=== PATIENT | female | born 2000 | race African-American/Black ===

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

== ENCOUNTER 2021-04-09 06:56 | Emergency (ER) | payer SELFPAY ==
[2021-04-09] MEDS ORDERED: Sodium Chloride 0.9% 10 ML Syringe FLUSH PRN (07:22)
[2021-04-09] MEDS ORDERED: Dexamethasone 4 MG/ML SDV IVPUSH ONE (07:22)
[2021-04-09] MEDS ORDERED: Sodium Chloride 0.9% 1,000 ML IV ONE (07:22)
--- NOTE | 2021-04-09 07:53 | EDM.PDOC ---
ED HPI GENERAL MEDICAL PROBLEM - General Chief Complaint: ENT Problem Stated Complaint: sore throat, cough, can't swallow, not eating or drinking Time Seen by Provider: 04/09/21 07:00 Source of Information: Reports: Patient History Limitations: Reports: No Limitations - History of Present Illness INITIAL COMMENTS - FREE TEXT/NARRATIVE: Patient presents to the ED with a three day history of sore throat, muffled voice, difficulty swallow, decreased oral intake, cough, ear pain, headache. She states it has been going on for the last 3 days but had a similar illness 2 weeks ago, went to the clinic, was tested for covid and strep, was told it was negative and not given medication. She has taken motrin for it. Today she came to the ED instead of the clinic with concerns of swallowing and not urinating for the last 12 hours. She is not vaccinated against covid or influenza. She has been around her family that has been ill with similar symptoms but unsure if they have been tested or treated for anything. Patient would like an oral pill and limited testing. Has not urinated in over 12 hours, barely able to swallow liquids. Some loose stools, no black or bloody stools Onset Date: 04/06/21 Duration: Getting Worse Associated Symptoms: Reports: Cough, Headaches, Loss of Appetite, Malaise, We akness Treatments PRESCHOOL ASSISTANT DIRECTOR: Reports: NSAIDS Throat Pain Score (Numeric/FACES): 8 - Related Data Allergies Allergy/AdvReac Type Severity Reaction Status Date / Time No Known Allergies Allergy Verified 04/09/21 07:12 Home Meds: Home Meds . [No Known Home Meds] 03/11/18 [History] Past Medical History Psychiatric History: Reports: Anxiety, Depression - History Comment History Comment: substance abuse Social & Family History - Tobacco Use Tobacco Use Status *Q: Current Every Day Tobacco User Years of Tobacco use: 1 Packs/Tins Daily: 0.3 - Recreational Drug Use Recreational Drug Use: No - Sexual History Sexual History: Reports: Vaginal [place] Contraceptive Use: Reports: Rarely/Does Not Use ED ROS GENERAL - Review of Systems Review Of Systems: See Below Constitutional: Reports: Malaise, Weakness, Fatigue, Decreased Appetite. Denies: Fever, Chills HEENT: Reports: Ear Pain, Throat Pain, Throat Swelling. Denies: Eye Discharge, Eye Pain, Nose Pain, Rhinitis, Sinus Problem Respiratory: Reports: Cough. Denies: Sputum, Hemoptysis Cardiovascular: Denies: Chest Pain, Dyspnea on Exertion, Edema, Lightheadedness, Palpitations GI/Abdominal: Reports: Diarrhea, Difficulty Swallowing. Denies: Abdominal Pain : Reports: Other (decreased urination) Musculoskeletal: Reports: Muscle Pain Skin: Reports: No Symptoms Neurological: Reports: No Symptoms Psychiatric: Reports: Anxiety Hematologic/Lymphatic: Reports: No Symptoms ED EXAM, GENERAL - Physical Exam Exam: See Below Exam Limited By: No Limitations General Appearance: Alert, No Apparent Distress Eye Exam: Bilateral Eye: EOMI, Normal Inspection, PERRL Ears: Normal External Exam, Normal Canal, Hearing Grossly Normal, Normal TMs Nose: Normal Inspection Throat/Mouth: Other (4+ tonsils, kissing, no exudate noted. uvula midline, dry mucous membranes. muffled voice) Head: Atraumatic Neck: Lymphadenopathy (L), Lymphadenopathy (R) Respiratory/Chest: Lungs Clear, Normal Breath Sounds, No Accessory Muscle Use, Chest Non-Tender Cardiovascular: Regular Rate, Rhythm, No Edema, No Murmur, No Rub GI/Abdominal: Normal Bowel Sounds, Soft, Non-Tender, No Abnormal Bruit. No: Rigid, Rebound Extremities: Normal Inspection, Normal Range of Motion, Non-Tender, No Pedal Edema Neurological: Alert, Oriented, CN II-XII Intact, Normal Cognition, No Motor/Sensory Deficits, Other (displays capacity to make decisions, able to ambulate and speak) Psychiatric: Anxious, Other (fearful of any medical intervntions offered) Course - Vital Signs Last Recorded V/S: Last Vital Signs Temp 36.5 C 04/09/21 07:02 Pulse 58 L 04/09/21 07:02 Resp 16 04/09/21 07:02 BP 135/80 04/09/21 07:02 Pulse Ox 100 04/09/21 07:02 - Orders/Labs/Meds Orders: Active Orders 24 hr Category Date Time Status C-REACTIVE PROTEIN [CHEM] Stat Lab 04/09/21 07:22 Ordered CBC WITH AUTO DIFF [HEME] Stat Lab 04/09/21 07:22 Ordered COMPREHENSIVE METABOLIC PN,CMP [CHEM] Stat Lab 04/09/21 07:22 Ordered COVID-19/FLU A+B/RSV [MOLEC] Stat Lab 04/09/21 07:22 Ordered LACTIC ACID [CHEM] Stat Lab 04/09/21 07:22 Ordered MONONUCLEOSIS SCREEN [CHEM] Stat Lab 04/09/21 07:22 Ordered STREP A BY PCR [MOLEC] Stat Lab 04/09/21 07:22 Ordered Sodium Chloride 0.9% @ Wide Open(1,000ml) Med 04/09/21 07:22 Ordered Sodium Chloride 0.9% [Normal Saline] 1,000 ml IV ONETIME Sodium Chloride 0.9% [Saline Flush] Med 04/09/21 07:22 Ordered 10 ml FLUSH ASDIRECTED PRN Peripheral IV Insertion Adult [OM.PC] Routine Oth 04/09/21 07:22 Ordered Medication Orders Sodium Chloride (Normal Saline) 1,000 mls @ 999 mls/hr IV ONETIME ONE Stop: 04/09/21 08:22 Sodium Chloride (Sodium Chloride 0.9% 10 Ml Syringe) 10 ml FLUSH ASDIRECTED PRN PRN Reason: Keep Vein Open Meds: Medications Generic Name Dose Route Start Last Admin Trade Name Freq PRN Reason Stop Dose Admin Sodium Chloride 1,000 mls @ 999 mls/hr 04/09/21 07:22 Normal Saline IV 04/09/21 08:22 ONETIME ONE Sodium Chloride 10 ml 04/09/21 07:22 Sodium Chloride 0.9% 10 Ml Syringe FLUSH ASDIRECTED PRN Keep Vein Open Discontinued Medications Generic Name Dose Route Start Last Admin Trade Name Freq PRN Reason Stop Dose Admin Dexamethasone 8 mg 04/09/21 07:22 Dexamethasone 4 Mg/Ml Sdv IVPUSH 04/09/21 07:23 ONETIME ONE - Re-Assessments/Exams Free Text/Narrative Re-Assessment/Exam: discussion with patient that the differential diagnosis is broad and concerning that she was ill with similiar illness in the last month and has limited oral intabke and signs of dehydration. Offered strep, mono, covid/flu testing with IV fluids, decadron and check labs with concern for differential of : strep, mono, covid, flu, paratonsillar abscess. Spent 15 minutes discussing testing needs and reasons, concern for her health, possible need for intervention or isolation and need for thorough evaluation. Patient asks for no testing, feels " I don't have covid or strep" and just wants some penicillin. ADvised that I would not prescribe treatment given her physical exam and lack of urine output without testing, especially in light of the upswing of COVID and influenza in the community. Nursing went into the room to start interventions. patient had very limited veins in the hands or forearms due to scarring. Refused antecubital iv start. At 735 decided to leave AMA. I did step in to the room and discussed the possibility of her being infectious and needing to quarantine and being a public health risk. I discussed with her the possibility of a paratonsillar or similar abscess that could lead to airway obstruction, severe illness and . She acknowledged this and signed the AMA form. Departure - Departure Time of Disposition: 07:38 Disposition: Against Medical Advice 07 Condition: Undetermined Clinical Impression: Sore throat - Discharge Information Additional Instructions: Patient signed out ama. form filed. Sepsis Event Note (ED) - Evaluation Sepsis Screening Result: No Definite Risk - Focused Exam Vital Signs: Vital Signs Temp Pulse Resp BP Pulse Ox 04/09/21 07:02 36.5 C 58 L 16 135/80 100 - My Orders Last 24 Hours: My Active Orders 04/09/21 07:22 C-REACTIVE PROTEIN [CHEM] Stat CBC WITH AUTO DIFF [HEME] Stat COMPREHENSIVE METABOLIC PN,CMP [CHEM] Stat COVID-19/FLU A+B/RSV [MOLEC] Stat LACTIC ACID [CHEM] Stat MONONUCLEOSIS SCREEN [CHEM] Stat STREP A BY PCR [MOLEC] Stat Sodium Chloride 0.9% @ Wide Open(1,000ml) Sodium Chloride 0.9% [Normal Saline] 1,000 ml IV ONETIME Sodium Chloride 0.9% [Saline Flush] 10 ml FLUSH ASDIRECTED PRN Peripheral IV Insertion Adult [OM.PC] Routine - Assessment/Plan Last 24 Hours: My Active Orders 04/09/21 07:22 C-REACTIVE PROTEIN [CHEM] Stat CBC WITH AUTO DIFF [HEME] Stat COMPREHENSIVE METABOLIC PN,CMP [CHEM] Stat COVID-19/FLU A+B/RSV [MOLEC] Stat LACTIC ACID [CHEM] Stat MONONUCLEOSIS SCREEN [CHEM] Stat STREP A BY PCR [MOLEC] Stat Sodium Chloride 0.9% @ Wide Open(1,000ml) Sodium Chloride 0.9% [Normal Saline] 1,000 ml IV ONETIME Sodium Chloride 0.9% [Saline Flush] 10 ml FLUSH ASDIRECTED PRN Peripheral IV Insertion Adult [OM.PC] Routine
== END 2021-04-09 07:38 | disposition left against medical advice (07) ==
LOC: VM.ED 06:56
DX: J02.9 Acute pharyngitis, unspecified (principal); Z72.0 Tobacco use
CPT/HCPCS: 99283

== ENCOUNTER 2021-05-03 02:10 | Emergency (ER) | payer SELFPAY | END 2021-05-03 03:00 | disposition home or self-care (01) | LOC: VM.ED 02:10 | DX: U07.1 COVID-19 (principal); Z91.011 Allergy to milk products; Z91.09 Other allergy status, other than to drugs and biological substances; Z72.0 Tobacco use | CPT/HCPCS: 99283 ==

== ENCOUNTER 2021-10-11 04:28 | Emergency (ER) | payer OTHER, MEDICAID | END 2021-10-11 05:05 | disposition home or self-care (01) | LOC: VM.ED 04:28 | DX: S16.1XXA Strain of muscle, fascia and tendon at neck level, initial encounter (principal); F41.9 Anxiety disorder, unspecified; Z88.0 Allergy status to penicillin; Z88.8 Allergy status to other drugs, medicaments and biological substances; V89.2XXA Person injured in unspecified motor-vehicle accident, traffic, initial encounter | CPT/HCPCS: 99283 ==

== ENCOUNTER 2023-04-19 23:55 | Emergency (ER) | payer MEDICAID, OTHER ==
[2023-04-20 00:27] LABS: APPEARANCE,URINE CLEAR (CLEAR); BILIRUBIN,URINE NEGATIVE (NEGATIVE); COLOR,URINE YELLOW (YELLOW); GLUCOSE,URINE NEGATIVE (NEGATIVE); KETONES,URINE NEGATIVE (NEGATIVE); LEUKOCYTE ESTERASE,URINE NEGATIVE (NEGATIVE); NITRITE,URINE NEGATIVE (NEGATIVE); OCCULT BLOOD,URINE NEGATIVE (NEGATIVE); PROTEIN,URINE NEGATIVE (NEGATIVE)
[2023-04-22 13:06] LABS: C.TRACHOMATIS BY TMA Negative (Negative); N.GONORRHOEAE BY TMA Negative (Negative); SOURCE Genital
== END 2023-04-20 01:10 | disposition home or self-care (01) ==
LOC: VM.ED 23:55
DX: R10.2 Pelvic and perineal pain (principal); F17.210 Nicotine dependence, cigarettes, uncomplicated; Z86.16 Personal history of COVID-19; Z91.048 Other nonmedicinal substance allergy status; Z91.018 Allergy to other foods
CPT/HCPCS: 81003; 81025; 87210; 87491; 87591; 99283; 99284

== ENCOUNTER 2024-01-03 09:29 | Emergency (ER) | payer MEDICAID, OTHER ==
[2024-01-03 10:21] LABS: CORONAVIRUS COVID-19 NAA NEGATIVE (NEGATIVE); INFLUENZA A NAA NEGATIVE (NEGATIVE); INFLUENZA B NAA NEGATIVE (NEGATIVE); RESPIRATORY SYNCYTIAL VIR NAA NEGATIVE (NEGATIVE)
[2024-01-03] MEDS: Acetaminophen 500 MG Tab PO ONE (10:49)
[2024-01-03] MEDS: Benzonatate 100 MG Cap PO PRN (10:49)
[2024-01-03] MEDS: Ketorolac 30 MG/ML SDV IM ONE (10:59)
== END 2024-01-03 10:56 | disposition home or self-care (01) ==
LOC: VM.ED 09:29
DX: B34.9 Viral infection, unspecified (principal); Z86.16 Personal history of COVID-19; Z91.048 Other nonmedicinal substance allergy status; Z91.011 Allergy to milk products
CPT/HCPCS: 0241U; 99283; 99284; A9270-GY

== ENCOUNTER 2024-06-06 05:06 | Emergency (ER) | payer MEDICAID ==
[2024-06-06] MEDS: Cyclobenzaprine 10 MG Tab PO ONE (05:45)
== END 2024-06-06 06:01 | disposition home or self-care (01) ==
LOC: VM.ED 05:06
DX: M25.511 Pain in right shoulder (principal); R03.0 Elevated blood-pressure reading, without diagnosis of hypertension; Z91.048 Other nonmedicinal substance allergy status; Z91.011 Allergy to milk products; Z79.899 Other long term (current) drug therapy; Z86.16 Personal history of COVID-19
CPT/HCPCS: 99283; A9270-GY

== ENCOUNTER 2024-06-10 02:17 | Emergency (ER) | payer MEDICAID ==
[2024-06-10] MEDS: Ondansetron 4 MG Tab.DIS PO ONE (02:24)
== END 2024-06-10 03:15 | disposition home or self-care (01) ==
LOC: VM.ED 02:17
DX: R11.0 Nausea (principal); T39.315A Adverse effect of propionic acid derivatives, initial encounter; Z91.048 Other nonmedicinal substance allergy status; Z91.011 Allergy to milk products; Z86.16 Personal history of COVID-19
CPT/HCPCS: 99283; A9270-GY

== ENCOUNTER 2024-08-12 23:30 | Emergency (ER) | payer SELFPAY ==
[2024-08-12 23:54] LABS: BASOPHILS ABSOLUTE AUTO 0.1 x10^3/uL (0.0-0.2); BASOPHILS PERCENT AUTO 0.7 % (0.2-1.2); EOSINOPHILS ABSOLUTE AUTO 0.3 x10^3/uL (0.0-0.5); EOSINOPHILS PERCENT AUTO 3.6 % (0.0-4.0); HEMATOCRIT 39.9 % (33.0-47.0); HEMOGLOBIN 13.3 g/dL (12.0-16.0); IMMATURE GRAN ABSOLUTE AUTO 0.01 x10^3/uL (0.00-0.07); LYMPHOCYTES ABSOLUTE AUTO 2.8 x10^3/uL (1.0-4.8); LYMPHOCYTES PERCENT AUTO 34.6 % (25.0-50.0); MEAN CORPUSCULAR HEMOGLOBIN 28.5 pg (26.0-32.0); MEAN CORPUSCULAR HGB CONC 33.3 g/dL (32.0-36.0); MEAN CORPUSCULAR VOLUME 85.4 fL (78.0-93.0); MONOCYTES ABSOLUTE AUTO 0.8 x10^3/uL (0.0-0.8); NEUTROPHILS ABSOLUTE AUTO 4.1 x10^3/uL (1.8-7.7); PLATELET COUNT,PLT 336 x10^3/uL (130-400); RED BLOOD CELL COUNT 4.67 x10^6/uL (4.00-5.50); WHITE BLOOD CELL COUNT,WBC 8.1 x10^3/uL (4.0-10.0)
[2024-08-13] MEDS: cefTRIAXone 1 GM Vial IVPUSH ONE (00:04)
[2024-08-13 00:06] LABS: A/G RATIO 1.19; ALANINE AMINOTRANSFERASE,ALT 28 U/L (14-59); ALBUMIN 4.4 g/dL (3.4-5.0); ALKALINE PHOSPHATASE 88 U/L (46-116); ANION GAP 15.5 mmol/L (5-15); ASPARTATE AMNIOTRANSFERASE,AST 19 U/L (15-37); BILIRUBIN TOTAL 0.3 mg/dL (0.2-1.0); BLOOD UREA NITROGEN,BUN 16 mg/dL (7-18); C-REACTIVE PROTEIN 0.53 mg/dL (<=0.50); CALCIUM 8.8 mg/dL (8.5-10.1); CARBON DIOXIDE,CO2 26 mmol/L (21-32); CHLORIDE,CL 101 mmol/L (98-107); CREATININE 1.1 mg/dL (0.55-1.02); ESTIMATED GFR 72 mL/min (>=60); GLUCOSE RANDOM 111 mg/dL (70-99); POTASSIUM,K 3.5 mmol/L (3.5-5.1); PROTEIN TOTAL,TP 8.1 g/dL (6.4-8.2); SODIUM,NA 139 mmol/L (136-145)
[2024-08-13 00:10] LABS: LACTIC ACID 2.3 mmol/L (0.4-2.0)
== END 2024-08-13 00:19 | disposition home or self-care (01) ==
LOC: VM.ED 23:30
DX: L03.811 Cellulitis of head [any part, except face] (principal); Z91.048 Other nonmedicinal substance allergy status; Z91.011 Allergy to milk products; Z79.899 Other long term (current) drug therapy; Z86.16 Personal history of COVID-19
CPT/HCPCS: 80053; 83605; 85025; 86140; 96374; 99283; 99284-25; J0696

== ENCOUNTER 2024-08-13 17:11 | Emergency (ER) | payer MEDICAID ==
[2024-08-13 17:55] LABS: BASOPHILS PERCENT AUTO 0.5 % (0.2-1.2); EOSINOPHILS ABSOLUTE AUTO 0.1 x10^3/uL (0.0-0.5); EOSINOPHILS PERCENT AUTO 1.5 % (0.0-4.0); HEMATOCRIT 37.6 % (33.0-47.0); HEMOGLOBIN 12.7 g/dL (12.0-16.0); IMMATURE GRAN ABSOLUTE AUTO 0.01 x10^3/uL (0.00-0.07); LYMPHOCYTES ABSOLUTE AUTO 2.5 x10^3/uL (1.0-4.8); LYMPHOCYTES PERCENT AUTO 28.3 % (25.0-50.0); MEAN CORPUSCULAR HEMOGLOBIN 28.9 pg (26.0-32.0); MEAN CORPUSCULAR HGB CONC 33.8 g/dL (32.0-36.0); MEAN CORPUSCULAR VOLUME 85.5 fL (78.0-93.0); MONOCYTES ABSOLUTE AUTO 0.5 x10^3/uL (0.0-0.8); MONOCYTES PERCENT AUTO 5.7 % (2.0-11.0); NEUTROPHILS ABSOLUTE AUTO 5.6 x10^3/uL (1.8-7.7); NEUTROPHILS PERCENT AUTO 63.9 % (50.0-80.0); PLATELET COUNT,PLT 310 x10^3/uL (130-400); WHITE BLOOD CELL COUNT,WBC 8.8 x10^3/uL (4.0-10.0)
[2024-08-13 17:57] LABS: APPEARANCE,URINE SLIGHTLY CLOUDY (CLEAR); BILIRUBIN,URINE NEGATIVE (NEGATIVE); COLOR,URINE LIGHT YELLOW (YELLOW); GLUCOSE,URINE NEGATIVE (NEGATIVE); KETONES,URINE NEGATIVE (NEGATIVE); LEUKOCYTE ESTERASE,URINE NEGATIVE (NEGATIVE); NITRITE,URINE NEGATIVE (NEGATIVE); OCCULT BLOOD,URINE NEGATIVE (NEGATIVE); PROTEIN,URINE NEGATIVE (NEGATIVE); UROBILINOGEN,URINE 0.2 EU/dL (0.2)
[2024-08-13 18:03] LABS: AMPHETAMINES SCREEN, URINE NEGATIVE (NEGATIVE); BARBITURATE SCREEN,URINE NEGATIVE (NEGATIVE)
[2024-08-13 18:04] LABS: BENZODIAZEPINES SCREEN,URINE NEGATIVE (NEGATIVE); BUPRENORPHINE SCREEN,URINE NEGATIVE (NEGATIVE); COCAINE METABOLITES,URINE NEGATIVE (NEGATIVE); METHADONE SCREEN, URINE NEGATIVE (NEGATIVE); METHAMPHETAMINE SCREEN, URINE NEGATIVE (NEGATIVE); OXYCODONE SCREEN,URINE NEGATIVE (NEGATIVE); PCP SCREEN,URINE NEGATIVE (NEGATIVE); THC SCREEN,URINE 50 NG/ML NEGATIVE (NEGATIVE)
[2024-08-13 18:13] LABS: A/G RATIO 1.16; ALANINE AMINOTRANSFERASE,ALT 28 U/L (14-59); ALBUMIN 4.3 g/dL (3.4-5.0); ALKALINE PHOSPHATASE 87 U/L (46-116); ASPARTATE AMNIOTRANSFERASE,AST 19 U/L (15-37); BILIRUBIN TOTAL 0.3 mg/dL (0.2-1.0); BLOOD UREA NITROGEN,BUN 10 mg/dL (7-18); CARBON DIOXIDE,CO2 28 mmol/L (21-32); CHLORIDE,CL 100 mmol/L (98-107); GLUCOSE RANDOM 113 mg/dL (70-99); POTASSIUM,K 3.3 mmol/L (3.5-5.1); SODIUM,NA 137 mmol/L (136-145)
[2024-08-13 18:14] LABS: ANION GAP 12.3 mmol/L (5-15); ESTIMATED GFR 81 mL/min (>=60)
[2024-08-13 18:18] LABS: CALCIUM 8.7 mg/dL (8.5-10.1)
== END 2024-08-13 19:31 | disposition home or self-care (01) ==
LOC: VM.ED 17:11
DX: L21.9 Seborrheic dermatitis, unspecified (principal); F41.9 Anxiety disorder, unspecified; F17.210 Nicotine dependence, cigarettes, uncomplicated; Z91.048 Other nonmedicinal substance allergy status; Z91.011 Allergy to milk products; Z86.16 Personal history of COVID-19
CPT/HCPCS: 36415; 80053; 80305-QW; 81003; 85025; 93005; 93010; 99284; 99285

== ENCOUNTER 2024-08-14 01:06 | Emergency (ER) | payer MEDICAID ==
[2024-08-14] MEDS ORDERED: Sodium Chloride 0.9% 10 ML Syringe FLUSH PRN (01:12)
[2024-08-14] MEDS: Sodium Chloride 0.9% 1,000 ML IV ONE (01:24)
[2024-08-14 01:26] LABS: BASOPHILS PERCENT AUTO 0.4 % (0.2-1.2); EOSINOPHILS ABSOLUTE AUTO 0.1 x10^3/uL (0.0-0.5); EOSINOPHILS PERCENT AUTO 0.9 % (0.0-4.0); HEMATOCRIT 39.5 % (33.0-47.0); HEMOGLOBIN 13.3 g/dL (12.0-16.0); IMMATURE GRAN ABSOLUTE AUTO 0.01 x10^3/uL (0.00-0.07); LYMPHOCYTES ABSOLUTE AUTO 3.3 x10^3/uL (1.0-4.8); LYMPHOCYTES PERCENT AUTO 36.4 % (25.0-50.0); MEAN CORPUSCULAR HEMOGLOBIN 28.9 pg (26.0-32.0); MEAN CORPUSCULAR HGB CONC 33.7 g/dL (32.0-36.0); MEAN CORPUSCULAR VOLUME 85.7 fL (78.0-93.0); MONOCYTES ABSOLUTE AUTO 0.7 x10^3/uL (0.0-0.8); MONOCYTES PERCENT AUTO 7.6 % (2.0-11.0); NEUTROPHILS ABSOLUTE AUTO 4.9 x10^3/uL (1.8-7.7); NEUTROPHILS PERCENT AUTO 54.6 % (50.0-80.0); PLATELET COUNT,PLT 340 x10^3/uL (130-400); RED BLOOD CELL COUNT 4.61 x10^6/uL (4.00-5.50)
[2024-08-14 01:57] LABS: A/G RATIO 1.18; ALBUMIN 4.5 g/dL (3.4-5.0); BILIRUBIN TOTAL 0.5 mg/dL (0.2-1.0); CREATININE 1.1 mg/dL (0.55-1.02); EST CRCL DRUG DOSING (CG) 68.69 mL/min; POTASSIUM,K 3.2 mmol/L (3.5-5.1); PROTEIN TOTAL,TP 8.3 g/dL (6.4-8.2); TSH ULTRASENSITIVE 1.463 uIU/mL (0.358-3.74)
[2024-08-14 02:05] LABS: ANION GAP 15.2 mmol/L (5-15)
[2024-08-14 02:23] LABS: CORONAVIRUS COVID-19 NAA NEGATIVE (NEGATIVE)
[2024-08-14 02:24] LABS: INFLUENZA A NAA NEGATIVE (NEGATIVE); INFLUENZA B NAA NEGATIVE (NEGATIVE); RESPIRATORY SYNCYTIAL VIR NAA NEGATIVE (NEGATIVE)
[2024-08-14] MEDS: Acetaminophen 325 MG Tab PO ONE (03:24)
== END 2024-08-14 03:32 | disposition home or self-care (01) ==
LOC: VM.ED 01:06
DX: F06.4 Anxiety disorder due to known physiological condition (principal); Z86.16 Personal history of COVID-19; Z91.011 Allergy to milk products; Z91.048 Other nonmedicinal substance allergy status
CPT/HCPCS: 0241U; 70450; 80053; 80307; 84443; 84484; 85025; 96360; 99284; 99285; A9270; J7030

== ENCOUNTER 2024-10-09 10:24 | Emergency (ER) | payer BC, MEDICAID ==
[2024-10-09] MEDS ORDERED: Sodium Chloride 0.9% 10 ML Syringe FLUSH PRN (10:45)
[2024-10-09 10:56] LABS: BASOPHILS PERCENT AUTO 0.6 % (0.2-1.2); EOSINOPHILS ABSOLUTE AUTO 0.3 x10^3/uL (0.0-0.5); EOSINOPHILS PERCENT AUTO 4.1 % (0.0-4.0); HEMATOCRIT 36.5 % (33.0-47.0); HEMOGLOBIN 12.3 g/dL (12.0-16.0); IMMATURE GRAN ABSOLUTE AUTO 0.01 x10^3/uL (0.00-0.07); LYMPHOCYTES ABSOLUTE AUTO 2.2 x10^3/uL (1.0-4.8); MEAN CORPUSCULAR HEMOGLOBIN 28.5 pg (26.0-32.0); MEAN CORPUSCULAR HGB CONC 33.7 g/dL (32.0-36.0); MEAN CORPUSCULAR VOLUME 84.7 fL (78.0-93.0); MONOCYTES ABSOLUTE AUTO 0.5 x10^3/uL (0.0-0.8); MONOCYTES PERCENT AUTO 7.5 % (2.0-11.0); NEUTROPHILS ABSOLUTE AUTO 3.4 x10^3/uL (1.8-7.7); NEUTROPHILS PERCENT AUTO 52.6 % (50.0-80.0); PLATELET COUNT,PLT 277 x10^3/uL (130-400); RED BLOOD CELL COUNT 4.31 x10^6/uL (4.00-5.50); WHITE BLOOD CELL COUNT,WBC 6.4 x10^3/uL (4.0-10.0)
[2024-10-09 11:14] LABS: PROTHROMBIN TIME 10.6 SEC (9.6-12.0); PTT,PARTIAL THROMBOPLSTIN TIME 26.1 SEC (23.5-33.2)
[2024-10-09 11:18] LABS: LACTIC ACID 1.3 mmol/L (0.4-2.0)
[2024-10-09 11:19] LABS: A/G RATIO 1.05; ALANINE AMINOTRANSFERASE,ALT 18 U/L (14-59); ALBUMIN 3.9 g/dL (3.4-5.0); ALKALINE PHOSPHATASE 73 U/L (46-116); ANION GAP 14.4 mmol/L (5-15); ASPARTATE AMNIOTRANSFERASE,AST 16 U/L (15-37); BILIRUBIN TOTAL 0.3 mg/dL (0.2-1.0); BLOOD UREA NITROGEN,BUN 14 mg/dL (7-18); C-REACTIVE PROTEIN 0.64 mg/dL (<=0.50); CARBON DIOXIDE,CO2 25 mmol/L (21-32); CHLORIDE,CL 102 mmol/L (98-107); EST CRCL DRUG DOSING (CG) 75.55 mL/min; ESTIMATED GFR 81 mL/min (>=60); GLUCOSE RANDOM 124 mg/dL (70-99); MAGNESIUM 1.9 mg/dL (1.8-2.4); POTASSIUM,K 3.4 mmol/L (3.5-5.1); PROTEIN TOTAL,TP 7.6 g/dL (6.4-8.2); SODIUM,NA 138 mmol/L (136-145)
[2024-10-09] MEDS: Ketorolac 15 MG/ML SDV IVPUSH ONE (11:31)
== END 2024-10-09 11:38 | disposition home or self-care (01) ==
LOC: VM.ED 10:24
DX: R07.89 Other chest pain (principal); Z91.048 Other nonmedicinal substance allergy status; Z91.011 Allergy to milk products; Z86.16 Personal history of COVID-19
CPT/HCPCS: 71045; 80053; 83605; 83735; 84484; 85025; 85610; 85730; 86140; 96374; 99283; 99285-25; J1885

== ENCOUNTER 2024-10-21 22:19 | Emergency (ER) | payer BC | END 2024-10-21 22:44 | disposition home or self-care (01) | LOC: VM.ED 22:19 | DX: J06.9 Acute upper respiratory infection, unspecified (principal); H61.23 Impacted cerumen, bilateral; R03.0 Elevated blood-pressure reading, without diagnosis of hypertension; J45.909 Unspecified asthma, uncomplicated; Z91.011 Allergy to milk products; Z91.048 Other nonmedicinal substance allergy status; Z79.899 Other long term (current) drug therapy; Z86.16 Personal history of COVID-19 | CPT/HCPCS: 99283; A9270 ==

== ENCOUNTER 2024-11-07 00:30 | Emergency (ER) | payer SELFPAY ==
[2024-11-07 01:22] LABS: BASOPHILS ABSOLUTE AUTO 0.0 x10^3/uL (0.0-0.2); BASOPHILS PERCENT AUTO 0.6 % (0.2-1.2); EOSINOPHILS ABSOLUTE AUTO 0.4 x10^3/uL (0.0-0.5); EOSINOPHILS PERCENT AUTO 5.4 % (0.0-4.0); IMMATURE GRAN ABSOLUTE AUTO 0.01 x10^3/uL (0.00-0.07); IMMATURE GRAN PERCENT AUTO 0.20 % (0.00-0.43); LYMPHOCYTES ABSOLUTE AUTO 3.0 x10^3/uL (1.0-4.8); LYMPHOCYTES PERCENT AUTO 45.0 % (25.0-50.0); MONOCYTES ABSOLUTE AUTO 0.6 x10^3/uL (0.0-0.8); MONOCYTES PERCENT AUTO 8.8 % (2.0-11.0); NEUTROPHILS ABSOLUTE AUTO 2.7 x10^3/uL (1.8-7.7); NEUTROPHILS PERCENT AUTO 40.0 % (50.0-80.0); PLATELET COUNT,PLT 262 x10^3/uL (130-400); RED BLOOD CELL COUNT 4.16 x10^6/uL (4.00-5.50); WHITE BLOOD CELL COUNT,WBC 6.6 x10^3/uL (4.0-10.0)
[2024-11-07 01:24] LABS: APPEARANCE,URINE CLEAR (CLEAR); GLUCOSE,URINE NEGATIVE (NEGATIVE); OCCULT BLOOD,URINE NEGATIVE (NEGATIVE)
[2024-11-07 01:41] LABS: A/G RATIO 0.92; ALANINE AMINOTRANSFERASE,ALT 31 U/L (14-59); ASPARTATE AMNIOTRANSFERASE,AST 20 U/L (15-37); BILIRUBIN TOTAL 0.2 mg/dL (0.2-1.0); BLOOD UREA NITROGEN,BUN 9 mg/dL (7-18); CARBON DIOXIDE,CO2 26 mmol/L (21-32); CHLORIDE,CL 103 mmol/L (98-107); CREATININE 1.0 mg/dL (0.55-1.02); ESTIMATED GFR 81 mL/min (>=60); GLUCOSE RANDOM 100 mg/dL (70-99); POTASSIUM,K 3.8 mmol/L (3.5-5.1); PROTEIN TOTAL,TP 7.1 g/dL (6.4-8.2); SODIUM,NA 138 mmol/L (136-145)
== END 2024-11-07 02:15 | disposition home or self-care (01) ==
LOC: VM.ED 00:30
DX: F41.9 Anxiety disorder, unspecified (principal); Z91.048 Other nonmedicinal substance allergy status; Z91.011 Allergy to milk products; Z79.899 Other long term (current) drug therapy; Z86.16 Personal history of COVID-19; Z91.148 Patient's other noncompliance with medication regimen for other reason
CPT/HCPCS: 36415; 80053; 81003; 81025; 85025; 87210; 99284; A9270-GY

== ENCOUNTER 2024-12-19 20:59 | Emergency (ER) | payer SELFPAY | END 2024-12-19 21:45 | disposition home or self-care (01) | LOC: VM.ED 20:59 | DX: J00 Acute nasopharyngitis [common cold] (principal); Z91.048 Other nonmedicinal substance allergy status; Z91.011 Allergy to milk products; Z79.899 Other long term (current) drug therapy; Z86.16 Personal history of COVID-19 | CPT/HCPCS: 99283 ==

== ENCOUNTER 2024-12-21 03:20 | Emergency (ER) | payer SELFPAY | END 2024-12-21 04:27 | disposition home or self-care (01) | LOC: VM.ED 03:20 | DX: J40 Bronchitis, not specified as acute or chronic (principal); J45.909 Unspecified asthma, uncomplicated; Z86.16 Personal history of COVID-19; Z91.048 Other nonmedicinal substance allergy status; Z79.51 Long term (current) use of inhaled steroids; Z79.899 Other long term (current) drug therapy | CPT/HCPCS: 87651; 99284 ==

== ENCOUNTER 2025-01-07 21:40 | Emergency (ER) | payer SELFPAY ==
[2025-01-07] MEDS: Ketorolac 30 MG/ML SDV IM ONE (22:30)
== END 2025-01-07 22:40 | disposition home or self-care (01) ==
LOC: VM.ED 21:40
DX: M94.0 Chondrocostal junction syndrome [Tietze] (principal); J45.909 Unspecified asthma, uncomplicated; Z79.899 Other long term (current) drug therapy; Z79.51 Long term (current) use of inhaled steroids; Z88.8 Allergy status to other drugs, medicaments and biological substances; Z91.011 Allergy to milk products; Z86.16 Personal history of COVID-19
CPT/HCPCS: 93005; 93010; 96372; 99284; J1885

== ENCOUNTER 2025-01-26 19:11 | Emergency (ER) | payer MEDICAID | END 2025-01-26 20:35 | disposition home or self-care (01) | LOC: VM.ED 19:11 | DX: T78.40XA Allergy, unspecified, initial encounter (principal); F41.9 Anxiety disorder, unspecified; J45.909 Unspecified asthma, uncomplicated; Z86.16 Personal history of COVID-19; Z79.899 Other long term (current) drug therapy; Z91.0110 Allergy to milk products, unspecified; Z91.048 Other nonmedicinal substance allergy status | CPT/HCPCS: 99283; 99284; A9270-GY ==

== ENCOUNTER 2025-02-22 21:28 | Emergency (ER) | payer MEDICAID ==
[2025-02-22 22:02] LABS: BASOPHILS ABSOLUTE AUTO 0.0 x10^3/uL (0.0-0.2); BASOPHILS PERCENT AUTO 0.5 % (0.2-1.2); EOSINOPHILS ABSOLUTE AUTO 0.4 x10^3/uL (0.0-0.5); EOSINOPHILS PERCENT AUTO 5.7 % (0.0-4.0); IMMATURE GRAN ABSOLUTE AUTO 0.00 x10^3/uL (0.00-0.07); IMMATURE GRAN PERCENT AUTO 0.00 % (0.00-0.43); LYMPHOCYTES ABSOLUTE AUTO 3.4 x10^3/uL (1.0-4.8); LYMPHOCYTES PERCENT AUTO 44.9 % (25.0-50.0); MONOCYTES ABSOLUTE AUTO 0.6 x10^3/uL (0.0-0.8); MONOCYTES PERCENT AUTO 8.0 % (2.0-11.0); NEUTROPHILS ABSOLUTE AUTO 3.1 x10^3/uL (1.8-7.7); NEUTROPHILS PERCENT AUTO 40.9 % (50.0-80.0); PLATELET COUNT,PLT 267 x10^3/uL (130-400); RED BLOOD CELL COUNT 4.03 x10^6/uL (4.00-5.50); WHITE BLOOD CELL COUNT,WBC 7.5 x10^3/uL (4.0-10.0)
[2025-02-22 22:17] LABS: A/G RATIO 0.92; ALANINE AMINOTRANSFERASE,ALT 26 U/L (14-59); ASPARTATE AMNIOTRANSFERASE,AST 15 U/L (15-37); BILIRUBIN TOTAL 0.2 mg/dL (0.2-1.0); BLOOD UREA NITROGEN,BUN 8 mg/dL (7-18); CARBON DIOXIDE,CO2 27 mmol/L (21-32); CHLORIDE,CL 106 mmol/L (98-107); CREATININE 0.9 mg/dL (0.55-1.02); GLUCOSE RANDOM 96 mg/dL (70-99); POTASSIUM,K 3.8 mmol/L (3.5-5.1); PROTEIN TOTAL,TP 6.9 g/dL (6.4-8.2); SODIUM,NA 141 mmol/L (136-145)
[2025-02-22 22:18] LABS: ESTIMATED GFR 92 mL/min (>=60)
== END 2025-02-22 22:33 | disposition home or self-care (01) ==
LOC: VM.ED 21:28
DX: M94.0 Chondrocostal junction syndrome [Tietze] (principal); J45.909 Unspecified asthma, uncomplicated; Z79.899 Other long term (current) drug therapy; Z86.16 Personal history of COVID-19; Z79.51 Long term (current) use of inhaled steroids; Z91.0110 Allergy to milk products, unspecified; Z91.048 Other nonmedicinal substance allergy status
CPT/HCPCS: 36415; 80053; 84484; 85025; 93005; 93010; 99284; 99285

== ENCOUNTER 2025-02-26 19:02 | Emergency (ER) | payer MEDICAID ==
[2025-02-26 19:24] LABS: BASOPHILS ABSOLUTE AUTO 0.0 x10^3/uL (0.0-0.2); BASOPHILS PERCENT AUTO 0.3 % (0.2-1.2); EOSINOPHILS ABSOLUTE AUTO 0.3 x10^3/uL (0.0-0.5); EOSINOPHILS PERCENT AUTO 4.8 % (0.0-4.0); IMMATURE GRAN ABSOLUTE AUTO 0.01 x10^3/uL (0.00-0.07); IMMATURE GRAN PERCENT AUTO 0.10 % (0.00-0.43); LYMPHOCYTES ABSOLUTE AUTO 2.9 x10^3/uL (1.0-4.8); LYMPHOCYTES PERCENT AUTO 40.6 % (25.0-50.0); MONOCYTES ABSOLUTE AUTO 0.4 x10^3/uL (0.0-0.8); MONOCYTES PERCENT AUTO 5.2 % (2.0-11.0); NEUTROPHILS ABSOLUTE AUTO 3.5 x10^3/uL (1.8-7.7); NEUTROPHILS PERCENT AUTO 49.0 % (50.0-80.0); PLATELET COUNT,PLT 293 x10^3/uL (130-400); RED BLOOD CELL COUNT 4.32 x10^6/uL (4.00-5.50); WHITE BLOOD CELL COUNT,WBC 7.1 x10^3/uL (4.0-10.0)
[2025-02-26 19:40] LABS: A/G RATIO 0.95; ALANINE AMINOTRANSFERASE,ALT 24 U/L (14-59); ASPARTATE AMNIOTRANSFERASE,AST 20 U/L (15-37); BILIRUBIN TOTAL 0.2 mg/dL (0.2-1.0); BLOOD UREA NITROGEN,BUN 11 mg/dL (7-18); CARBON DIOXIDE,CO2 29 mmol/L (21-32); CHLORIDE,CL 103 mmol/L (98-107); CREATININE 0.9 mg/dL (0.55-1.02); ESTIMATED GFR 92 mL/min (>=60); GLUCOSE RANDOM 108 mg/dL (70-99); POTASSIUM,K 3.5 mmol/L (3.5-5.1); PROTEIN TOTAL,TP 7.6 g/dL (6.4-8.2); SODIUM,NA 139 mmol/L (136-145)
[2025-02-26] MEDS: Take Home: predniSONE 20 MG, 2 Tab Pack PO ONE (21:15)
== END 2025-02-26 21:20 | disposition home or self-care (01) ==
LOC: VM.ED 19:02
DX: M94.0 Chondrocostal junction syndrome [Tietze] (principal); J45.909 Unspecified asthma, uncomplicated; Z91.048 Other nonmedicinal substance allergy status; Z91.0110 Allergy to milk products, unspecified; Z86.16 Personal history of COVID-19
CPT/HCPCS: 36415; 71046; 80053; 84484; 85025; 99283; 99285; J7512

== ENCOUNTER 2025-02-28 16:45 | Emergency (ER) | payer MEDICAID ==
[2025-02-28] MEDS: Diphtheria,Pertussis(Acell),Tetanus Vaccine 0.5 ML Syringe IM ONE (17:14)
[2025-02-28 18:40] VITALS: BP 139/82; PULSE 87
== END 2025-02-28 17:24 | disposition home or self-care (01) ==
LOC: VM.ED 16:45
DX: S60.511A Abrasion of right hand, initial encounter (principal); S00.81XA Abrasion of other part of head, initial encounter; J45.909 Unspecified asthma, uncomplicated; Z91.048 Other nonmedicinal substance allergy status; Z91.0110 Allergy to milk products, unspecified; Z79.899 Other long term (current) drug therapy; Z86.16 Personal history of COVID-19; Y08.89XA Assault by other specified means, initial encounter; X58.XXXA Exposure to other specified factors, initial encounter
CPT/HCPCS: 90471; 90715; 99283; 99283-25